=== PATIENT | male | born 1965 | race Caucasian/White ===

== ENCOUNTER → 2018-10-09 | Outpatient (CLI) | payer BC ==
[2018-10-09 16:13] LABS: BASOPHILS % (AUTO) 0 % (0-10); EOSINOPHILS % (AUTO) 0 % (0-10); HEMATOCRIT 52 % (40-54); HEMOGLOBIN 19.3 G/DL (13.3-17.7); LYMPHOCYTES # (AUTO) 0.9 X 10^3 (1.0-4.0); LYMPHOCYTES % (AUTO) 15 % (12-44); MEAN CORPUSCULAR HGB CONC 37 G/DL (32-36); MEAN CORPUSCULAR VOLUME 101 FL (80-99); MEAN PLATELET VOLUME 8.2 FL (7.4-10.4); MONOCYTES # (AUTO) 0.5 X 10^3 (0.0-1.0); MONOCYTES % (AUTO) 9 % (0-12); NEUTROPHILS # (AUTO) 4.2 X 10^3 (1.8-7.8); NEUTROPHILS % (AUTO) 75 % (42-75); PLATELET COUNT 156 10^3/uL (130-400); RED CELL DISTRIBUTION WIDTH 12.8 % (10.0-14.5); WHITE BLOOD COUNT 5.6 10^3/uL (4.3-11.0)
[2018-10-09 16:14] LABS: MEAN CORPUSCULAR HEMOGLOBIN 37 PG (25-34)
[2018-10-09 16:38] LABS: FIBRIN DEGRADATION PRODUCTS 0.72 UG/ML (0.00-0.49); PROTHROMBIN TIME PATIENT 13.3 SEC (12.2-14.7)
[2018-10-09 16:39] LABS: ALANINE AMINOTRANSFERASE 61 U/L (0-55); ALBUMIN 4.4 GM/DL (3.2-4.5); ALKALINE PHOSPHATASE 79 U/L (40-136); BILIRUBIN,TOTAL 1.5 MG/DL (0.1-1.0); BUN/CREATININE RATIO 7; CALCIUM 9.5 MG/DL (8.5-10.1); CARBON DIOXIDE 23 MMOL/L (21-32); CHLORIDE 100 MMOL/L (98-107); CREATININE SERUM 0.81 MG/DL (0.60-1.30); GFR ESTIMATED > 60; GLUCOSE 97 MG/DL (70-105); POTASSIUM 4.2 MMOL/L (3.6-5.0); SODIUM 134 MMOL/L (135-145); TOTAL PROTEIN 7.7 GM/DL (6.4-8.2)
== END ==
LOC: LAB 15:52
PROVIDERS: ATTEND Nurse Practitioner Family
DX: D51.3 Other dietary vitamin B12 deficiency anemia (principal); M79.662 Pain in left lower leg; I10 Essential (primary) hypertension; Z72.0 Tobacco use
CPT/HCPCS: 36415; 80053; 82607; 85025; 85379; 85610

== ENCOUNTER → 2018-10-10 | Outpatient (CLI) | payer BC ==
--- NOTE | 2018-10-10 13:31 | Diagnostic Imaging Report ---
PROCEDURE: US left lower extremity venous. TECHNIQUE: Multiple real-time grayscale images were obtained over the left lower extremity in various projections. Additional duplex Doppler and color Doppler images were also obtained. INDICATION: Localized swelling with mass and lump over the left lower extremity. FINDINGS: There is no evidence of left lower extremity DVT. Left lower extremity deep venous system shows normal compressibility with normal response to augmentation and Valsalva. No fluid collection or mass is seen. IMPRESSION: No evidence of left lower extremity DVT. Dictated by: Dictated on workstation # [id number]
== END ==
LOC: RAD 11:34
PROVIDERS: ATTEND Nurse Practitioner Family
DX: R22.42 Localized swelling, mass and lump, left lower limb (principal)

== ENCOUNTER 2019-02-04 01:46 | Inpatient (IN) | payer BC ==
[2019-02-04] VITALS (20 sets, daily range): BP systolic 89–155; BP diastolic 59–99
[~2019-02-04] VITALS: Ht 185 cm; Wt 88.6 kg
--- NOTE | 2019-02-04 01:56 | NUR ---
O2 DECREASED TO 4L VIA NC. O2 SAT 94%.
[2019-02-04] MEDS ORDERED: RT-ALBUTEROL/IPRATROPIUM 3 ML (DUONEB) VIAL ONE (01:58)
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
[2019-02-04 02:10] LABS: HEMOGLOBIN 16.1 G/DL (13.3-17.7); MEAN PLATELET VOLUME 9.4 FL (7.4-10.4); WHITE BLOOD COUNT 6.4 10^3/uL (4.3-11.0)
[2019-02-04] MEDS ORDERED: TETANUS,DIPTH,PERTUSS P/F (BOOSTRIX) 0.5 ML VIAL IM ONE (02:15)
--- NOTE | 2019-02-04 02:15 | NUR ---
INITIAL TRAUMA PAGED LEVEL 1 ACCORDING TO EMS REPORT. AFTER ASSESSMENT DR. BLAIR CHANGED TRAUMA TO LEVEL II.
[2019-02-04] MEDS ORDERED: LACTATED RINGERS 1,000 ML IV ONE ×2 (02:16→05:56)
[2019-02-04 02:25] LABS: BILIRUBIN,URINE NEGATIVE (NEGATIVE); CLARITY,URINE CLEAR; COLOR,URINE YELLOW; GLUCOSE, URINE (UA) NEGATIVE (NEGATIVE); KETONES,URINE NEGATIVE (NEGATIVE); LEUKOCYTE ESTERASE ,URINE NEGATIVE (NEGATIVE); NITRITE,URINE NEGATIVE (NEGATIVE); PH,URINE 6 (5-9); PROTEIN,URINE 3+ (NEGATIVE); UROBILINOGEN,URINE NORMAL (NORMAL)
[2019-02-04 02:31] LABS: ALANINE AMINOTRANSFERASE 114 U/L (0-55); ALKALINE PHOSPHATASE 79 U/L (40-136); BILIRUBIN,DIRECT 0.1 MG/DL (0.0-0.3); BILIRUBIN,INDIRECT 0.7 MG/DL; BILIRUBIN,TOTAL 0.8 MG/DL (0.1-1.0); BUN/CREATININE RATIO 6; CALCIUM 8.1 MG/DL (8.5-10.1); CARBON DIOXIDE 21 MMOL/L (21-32); CHLORIDE 99 MMOL/L (98-107); CREATININE SERUM 0.79 MG/DL (0.60-1.30); GFR ESTIMATED > 60; GLUCOSE 105 MG/DL (70-105); POTASSIUM 5.8 MMOL/L (3.6-5.0); SODIUM 132 MMOL/L (135-145); TOTAL PROTEIN 8.3 GM/DL (6.4-8.2)
[2019-02-04 02:49] LABS: BACTERIA,URINE FEW /HPF; SQUAMOUS EPITHELIAL CELL,UR 0-2 /HPF; WBC,URINE 0-2 /HPF
[2019-02-04] MEDS ORDERED: HOLD METFORMIN - RECEIVED CONTRAST 20 ML VIAL IV SCH (03:00)
[2019-02-04] MEDS ORDERED: IOHEXOL 350 MG/ML 100 ML (OMNIPAQUE 350) VIAL IV ONE (03:00)
[2019-02-04] MEDS ORDERED: NS 100 ML (IVPB) BAG IV ONE (03:00)
--- NOTE | 2019-02-04 03:30 | NUR ---
SUTURES PER DR. BLAIR: CHIN= 7CM LAC = 8 SUTURES OF 4-0 PROLENE. RIGHT SIDE UPPER LIP= 2 CM LAC = 3 SUTURES OF 5-0 PROLENE. RIGHT JACOME= 2.5 CM = 3 SUTURES OF 4-0 PROLENE. WOUND ADHESIVE TO 10CM SUPERFICIAL LAC TO NECK.
[2019-02-04] MEDS ORDERED: ceFAZolin INJECTION 1,000 MG in WATER (STERILE) FOR INJECTION 10 ML IV ONE (04:45)
--- NOTE | 2019-02-04 04:50 | NUR ---
PT FOUND STANDING ON SIDE OF BED WITH ANDERSON CATHETER ON THE FLOOR. THE ANDERSON CATHETER WAS FOUND TO BE INTACT WITH BALLOON STILL INFLATED. PT ASSISTED BACK TO BED AND DR. BLAIR NOTIFIED AND PRESENTED TO BEDSIDE. NEW ANDERSON CATHETER NOT INSERTED PER DR. BLAIR VERBAL ORDER.
[2019-02-04] MEDS ORDERED: WATER (STERILE) FOR INJECTION 0 ML ONE (05:13)
[2019-02-04] MEDS ORDERED: CEFEPIME 2 GM (MAXIPIME) VIAL ONE (05:13)
[2019-02-04] MEDS ORDERED: fentaNYL INJECTION 100 MCG/2 ML AMP IV PRN (07:00)
[2019-02-04] MEDS ORDERED: ONDANSETRON 4 MG/2 ML (SDV) Z0FRAN IV PRN (07:00)
[2019-02-04] MEDS: LACTATED RINGERS 1,000 ML IV SCH ×2 (07:00→16:27)
--- NOTE | 2019-02-04 07:15 | NUR ---
PT IS ALERT 1-2 AND UNABLE TO ANSWER HEALTH HISTORY QUESTIONS AT THIS TIME.
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
--- NOTE | 2019-02-04 10:00 | NUR ---
DR SANDERS AT BEDSIDE. SLING PLACED TO LEFT ARM FOR LT CLAVICLE FX. STATES HE WILL ORDER REPEAT KAYODE. ADVISED OF LARGE HEMATOMA TO LEFT HIP/THIGH. HE WILL LOOK AT CT AND POSSIBLY ORDER HIP XRAY.
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
[2019-02-04 12:09] LABS: BUN/CREATININE RATIO 7; CALCIUM 8.2 MG/DL (8.5-10.1); CARBON DIOXIDE 21 MMOL/L (21-32); CHLORIDE 100 MMOL/L (98-107); CREATININE SERUM 0.69 MG/DL (0.60-1.30); GFR ESTIMATED > 60; GLUCOSE 131 MG/DL (70-105); SODIUM 134 MMOL/L (135-145)
[2019-02-04] MEDS: NICOTINE 21 MG (NICODERM) PATCH TD SCH (13:21)
--- NOTE | 2019-02-04 14:03 | NUR ---
PER [facility], PT RX BEING FILLED IS: QUINAPRIL 20MG ONE TAB DAILY; ALPRAZOLAM 1MG 1.5 TAB DAILY PRN; KETOCONAZOLE 2% CREAM APPLY TO FACE DAILY PRN
--- NOTE | 2019-02-04 17:53 | NUR ---
PT HAD NOT VOIDED FOR APPROX 6 HRS. HE STATED HE HAD NO SENSATION TO GO. BLADDER SCAN REVEALED 508ML IN BLADDER. PT WAS ABLE TO VOID 250ML OF PINK TINGED URINE. URINATION IS PAINFUL AND SINCLAIR. ADVISED PATIENT TO CONTINUE TO TRY AND URINATE. HE STATES HE WILL TO AVOID CATHETER INSERTION.
--- NOTE | 2019-02-04 17:57 | NUR ---
PTS LEFT HIP/THIGH AREA CONTINUES TO BE SWOLLEN AND BRUISE IS WORSENING THE DAY GOES ON. PT DENIES ANY PAIN AND IS MOVING LEG FREELY. DISTAL PULSE IS INTACT AND STRONG. SWELLING HAS EXTENDED SOME PAST LINE DRAWN FROM THIS MORNING. PROVIDER IS AWARE OF SWELLING. WILL CONTINUE TO MONITOR THIS.
[2019-02-05] VITALS (14 sets, daily range): BP systolic 127–153; BP diastolic 73–97
[2019-02-05] MEDS: fentaNYL INJECTION 100 MCG/2 ML AMP IV PRN ×4 (00:41→10:33)
--- NOTE | 2019-02-05 02:15 | NUR ---
Ck casillas in ED - 02/05/19 at 0911 by MARICRUZ INITIAL TRAUMA PAGED LEVEL 1 ACCORDING TO EMS REPORT. AFTER ASSESSMENT DR. BLAIR CHANGED TRAUMA TO LEVEL II.
[2019-02-05] MEDS: LACTATED RINGERS 1,000 ML IV SCH (02:43)
[2019-02-05 03:55] LABS: BASOPHILS % (AUTO) 0 % (0-10); EOSINOPHILS % (AUTO) 0 % (0-10); HEMATOCRIT 34 % (40-54); LYMPHOCYTES # (AUTO) 0.8 X 10^3 (1.0-4.0); LYMPHOCYTES % (AUTO) 13 % (12-44); MEAN CORPUSCULAR HEMOGLOBIN 38 PG (25-34); MEAN CORPUSCULAR HGB CONC 35 G/DL (32-36); MEAN CORPUSCULAR VOLUME 106 FL (80-99); MEAN PLATELET VOLUME 8.5 FL (7.4-10.4); MONOCYTES # (AUTO) 0.7 X 10^3 (0.0-1.0); MONOCYTES % (AUTO) 10 % (0-12); NEUTROPHILS # (AUTO) 4.9 X 10^3 (1.8-7.8); NEUTROPHILS % (AUTO) 77 % (42-75); PLATELET COUNT 154 10^3/uL (130-400); WHITE BLOOD COUNT 6.4 10^3/uL (4.3-11.0)
[2019-02-05 04:15] LABS: BUN/CREATININE RATIO 10; CALCIUM 8.1 MG/DL (8.5-10.1); CARBON DIOXIDE 23 MMOL/L (21-32); CHLORIDE 101 MMOL/L (98-107); CREATININE SERUM 0.61 MG/DL (0.60-1.30); GFR ESTIMATED > 60; GLUCOSE 122 MG/DL (70-105); MAGNESIUM 1.7 MG/DL (1.6-2.4); PHOSPHORUS 3.2 MG/DL (2.3-4.7); POTASSIUM 3.5 MMOL/L (3.6-5.0); SODIUM 134 MMOL/L (135-145)
[2019-02-05] MEDS: MAGNESIUM 1 GM/100 ML IVPB 100 ML IV SCH ×2 (05:55→07:13)
[2019-02-05] MEDS ORDERED: MAGNESIUM 1 GM/100 ML IVPB 100 ML IV SCH (06:00)
[2019-02-05] MEDS ORDERED: KCL 20 MEQ TAB (K-DUR) PO SCH (06:00)
[2019-02-05] MEDS ORDERED: POTASSIUM CL 10MEQ/50ML IVPB 50 ML IV SCH (06:00)
--- NOTE | 2019-02-05 07:40 | NUR ---
ASSUMING CARE OF THIS PATIENT. REPORT RECIEVED AND ASSESSMENT COMPLETED. PT C/O PAIN 12/16 FOR A DULL HEADACHE. EDUCATED ON NARCOTIC PAIN MEDICATION AND WHEN IT COULD BE ADMINISTERED. PLAN IS TO ADMINISTER AT 0755 PER ORDER AND THEN TRY TO GET UP TO CHAIR. LEFT HIP/THIGH CONTINUES TO BE SWOLLEN AND BRUISE WORSENED. HE DENIES PAIN HERE. ATTEMPTED TO WEAN DOWN OXYGEN TO 1 LPM WITH SATS DROPPING TO 90% AND STAYED. IS ORDERED AND RT NOTIFIED.
[2019-02-05] MEDS: NICOTINE 21 MG (NICODERM) PATCH TD SCH (08:19)
[2019-02-05] MEDS ORDERED: ALPR1TAB2 PO (08:47)
[2019-02-05] MEDS ORDERED: QUIN20TA16 PO (08:48)
[2019-02-05] MEDS ORDERED: KETO15CR2 TOP (08:48)
[2019-02-05] MEDS ORDERED: PATCH REMOVAL TP SCH (09:00)
[2019-02-05] MEDS: POTASSIUM CL 10MEQ/50ML IVPB 50 ML IV SCH ×2 (09:07→10:11)
--- NOTE | 2019-02-05 09:20 | NUR ---
PT ASSISTED TO RECLINER X 1. WAS ABLE TO RISE FROM BED IN ONE TRY. PT WAS VERY SHAKY BUT ONLY NEEDED SBA FOR TRANSFER. HE STATES IT FEELS GOOD TO SIT IN THE CHAIR. PT SHAKE STOPPED AFTER SITTING. OXYGEN SATS 95-96%. PT ENCOURAGED TO USE IS AND HE DOES WITH GOOD EFFORT.
--- NOTE | 2019-02-05 09:48 | NUR ---
PT SITTING UP IN RECLINER. SATS 98-100%. OXYGEN TITRATED AND IS NOW OFF. SATS REMAIN 99%. WILL MONITOR.
[2019-02-05] MEDS ORDERED: 1/2 NS IV SOLUTION 1,000 ML IV PRN (11:26)
[2019-02-05] MEDS ORDERED: LORazepam INJ 2 MG/ML (ATIVAN) VIAL IM/IV PRN (11:30)
[2019-02-05] MEDS ORDERED: SENNA W/DOCUSATE (SENOKOT S) TABLET PO PRN (11:30)
[2019-02-05] MEDS ORDERED: ANTACID SUSP 30 ML UDC (MYLANTA) PO PRN (11:30)
[2019-02-05] MEDS ORDERED: D5 1/2 NS 1000 ML IV SOLUTION 1,000 ML IV PRN (11:30)
[2019-02-05] MEDS ORDERED: LORazepam INJ 2 MG/ML (ATIVAN) VIAL IV PRN (11:30)
[2019-02-05] MEDS: LORazepam 1 MG (ATIVAN) TAB PO PRN ×2 (11:48→13:31)
--- NOTE | 2019-02-05 13:10 | NUR ---
PT MOOD LABILE. HE HAS TAKEN ALL BEDSIDE MONITORING OFF AND WILL NOT ALLOW ME TO PUT THEM BACK ON. WANTS ME TO TAKE OUT HIS IV'S. STATES HE IS READY TO GO HOME. WAS ABLE TO CALM PATIENT WITH THERAPEUTIC COMMUNICATION AND HE WILL ALLOW ME TO LEAVE IV'S IN. PT DID GET UP AND WALK AROUND ROOM ON HIS OWN. HE IS NOW SITTING IN HIS CHAIR WATCHING TV.
--- NOTE | 2019-02-05 13:43 | NUR ---
FOUND PATIENT WALKING UP SMITH AFTER MOTHER HAD LEFT THE ROOM. STATED HE WAS READY TO GO HOME. PT DID WILLINGLY WALK BACK TO HIS ROOM. ALDAIR COMPLETED, ADMINISTERED 2MG ATIVAN PER SCALE. PT DID ALLOW ME TO MEASURE BLOOD PRESSURE BUT NOT MEAT PASSER BSM. DID TELL PATIENT THAT I COULD NOT HOLD HIM HERE BUT IF HE LEFT IT WOULD BE AMA. PT STATES HE WILL WAIT FOR THE DOCTOR.
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
--- NOTE | 2019-02-05 14:38 | Discharge Inst-Surgical ---
Discharge Inst-Surgical Depart Medication/Instructions New, Converted or Re-Newed RX: Other (no rx needed, pt should use Ibuprofen or tylenol at home for pain) Patient Instructions Follow up Appt: Make appointment for 1 week. [phone] Instructions: No lifting greater than 20 pounds. Do not use left arm, leave in sling 29/11 No strenuous activity. May shower in 24 hours, no tub bath or soaking. Use incentive spirometer at home as directed. No Smoking Skin/Wound Care: You need to leave the Dermabond on incision it will fall off on it's own. Symptoms to Report: Appetite Changes, Extremity Discoloration, Numbness/Tingling, Swelling Increased, Bleeding Excessive, Eyesight Changes, Pain Increased, Urine Color Change, Constipation(Persistent), Fever over 101 degree F, Pain/Pressure in chest, Urinating Difficulty, Cough Up/Vomit Blood, Heart Beat Irreg/Pounding, Pain/Pressure in jaw, Cramps in feet or legs, Lightheadedness, Pain/Pressure in shoulder, Diarrhea(Persistent), Memory Changes Suddenly, Questions/Concerns, Weight gain consecutive days, Dizziness/Fainting, Nausea/Vomiting, Shortness of Breath, Weight gain over 2 pounds If questions or concerns contact your physician Or seek help at emergency department. Activity Activity as Tolerated: Yes Driving Instructions: No Driving/Refer to Dr. Cardenas Discharge Diet: No Restrictions Diet After 24 Hours: Clear Liquid if Nauseous Symptoms to Report to Physicia: Shortness of Breath If Any Problems/Questions/Issu: Contact Your Physician, Go to Emergency Room Skin/Wound Care Infection Signs and Symptoms: Increased Redness, Foul Odor of Wound, Increased Drainage, Skin Itchy or Has a Rash, Increased Swelling, Temperature Above 101 F Bathing Instructions: Shower Stitches/Mandy/Dermabond Dis: Dermabond THIEN SANDERS DO Feb 05, 2019 14:37
--- NOTE | 2019-02-05 15:03 | NUR ---
PT DISCHARGED TO PRIVATE VEHICLE VIA W/C. MOTHER TO HELP CARE FOR PATIENT. ALL DISCHARGE INFORMATION GIVEN. TOLD PATIENT IMPORTANCE TO NOT USE LEFT ARM AND KEEP IN SLING. HE VOICED UNDERSTANDING. ALL PERSONAL BELONGINGS TAKEN WITH PATIENT. HE REFUSED VITALS AT D/C.
== END 2019-02-05 14:34 | disposition home or self-care (01) | DRG 987 ==
LOC: EDUNIT# 01:54 → ER 01:56 → ICU 04:30 → UNDOADMOB 04:30 → ICU 05:33 → UNDODISOB 02-05 15:03
PROVIDERS: ADMIT Surgery; ATTEND Surgery
PROC: 0JQ10ZZ Repair Face Subcutaneous Tissue and Fascia, Open Approach (ICD-10-PCS; principal; 2019-02-04)
PROC: 0HQKXZZ Repair Right Lower Leg Skin, External Approach (ICD-10-PCS; 2019-02-04)
DX: S22.43XA Multiple fractures of ribs, bilateral, initial encounter for closed fracture (principal); S12.8XXA Fracture of other parts of neck, initial encounter; S02.19XA Other fracture of base of skull, initial encounter for closed fracture; S42.022A Displaced fracture of shaft of left clavicle, initial encounter for closed fracture; S01.511A Laceration without foreign body of lip, initial encounter; S01.81XA Laceration without foreign body of other part of head, initial encounter; S81.811A Laceration without foreign body, right lower leg, initial encounter; F10.921 Alcohol use, unspecified with intoxication delirium; S37.30XA Unspecified injury of urethra, initial encounter; S00.03XA Contusion of scalp, initial encounter; S80.211A Abrasion, right knee, initial encounter; S80.212A Abrasion, left knee, initial encounter; S70.212A Abrasion, left hip, initial encounter; S60.811A Abrasion of right wrist, initial encounter; R31.9 Hematuria, unspecified; F41.9 Anxiety disorder, unspecified; F17.210 Nicotine dependence, cigarettes, uncomplicated; E87.6 Hypokalemia; Z23 Encounter for immunization; V57 Occupant of pick-up truck or van injured in collision with fixed or stationary object
CPT/HCPCS: 36415; 51702; 70450; 70486; 71045; 71260; 72125; 74177; 80048; 80076; 80320; 81000; 83735; 84100; 85025; 85027; 86850; 86900; 86901; 87081; 90471; 90715; 93005; 93041; 94640; 94664; 96361; 96374

== ENCOUNTER 2019-02-17 11:21 | Inpatient (IN) | payer BC ==
[~2019-02-17] VITALS: Ht 185.5 cm; Wt 85.9 kg
[~2019-02-17 11:21] MED LIST: ALPR1TAB2 PO; KETO15CR2 TOP; QUIN20TA16 PO
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
[2019-02-17 12:13] LABS: BASOPHILS % (AUTO) 0 % (0-10); EOSINOPHILS % (AUTO) 0 % (0-10); HEMATOCRIT 37 % (40-54); HEMOGLOBIN 14.5 G/DL (13.3-17.7); LYMPHOCYTES # (AUTO) 0.7 X 10^3 (1.0-4.0); LYMPHOCYTES % (AUTO) 5 % (12-44); MEAN CORPUSCULAR HEMOGLOBIN 37 PG (25-34); MEAN CORPUSCULAR HGB CONC 39 G/DL (32-36); MEAN CORPUSCULAR VOLUME 95 FL (80-99); MEAN PLATELET VOLUME 7.7 FL (7.4-10.4); MONOCYTES # (AUTO) 0.8 X 10^3 (0.0-1.0); MONOCYTES % (AUTO) 6 % (0-12); NEUTROPHILS # (AUTO) 12.1 X 10^3 (1.8-7.8); NEUTROPHILS % (AUTO) 90 % (42-75); PLATELET COUNT 495 10^3/uL (130-400); RED CELL DISTRIBUTION WIDTH 12.1 % (10.0-14.5); WHITE BLOOD COUNT 13.5 10^3/uL (4.3-11.0)
[2019-02-17 12:22] LABS: INR 0.9 (0.8-1.4); PROTHROMBIN TIME PATIENT 12.6 SEC (12.2-14.7)
--- NOTE | 2019-02-17 12:26 | NUR ---
TRAUN IN TALKING TO PT
[2019-02-17 12:30] LABS: ALANINE AMINOTRANSFERASE 28 U/L (0-55); ALBUMIN 4.1 GM/DL (3.2-4.5); ALKALINE PHOSPHATASE 106 U/L (40-136); BILIRUBIN,TOTAL 2.7 MG/DL (0.1-1.0); BUN/CREATININE RATIO 7; CALCIUM 9.2 MG/DL (8.5-10.1); CARBON DIOXIDE 17 MMOL/L (21-32); CHLORIDE 79 MMOL/L (98-107); GFR ESTIMATED > 60; GLUCOSE 96 MG/DL (70-105); POTASSIUM 4.4 MMOL/L (3.6-5.0); TOTAL PROTEIN 7.3 GM/DL (6.4-8.2)
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
[2019-02-17 12:36] LABS: SODIUM 110 MMOL/L (135-145)
[2019-02-17] MEDS ORDERED: LIDOCAINE 1% INJ 20 ML 20 ML VIAL ONE (12:40)
--- NOTE | 2019-02-17 12:42 | NUR ---
DR HOLGUIN HERE FOR CHEST TUBE PLACEMENT
[2019-02-17 12:48] LABS: BAND NEUTROPHILS 0 %; BASOPHILS % (MANUAL) 0 %; EOSINOPHILS % (MANUAL) 0 %; LYMPHOCYTES % (MANUAL) 5 %; MONOCYTES % (MANUAL) 10 %; NEUTROPHILS % (MANUAL) 85 %; RBC MORPH NORMAL
--- NOTE | 2019-02-17 13:10 | NUR ---
RESTING IN BED. DENIES NEEDS. WARM BLANKET GIVEN.
--- NOTE | 2019-02-17 13:37 | Diagnostic Imaging Report ---
Clinical indication: Patient with left pneumothorax. Post chest tube placement. Exam: Portable chest x-ray upright view. Comparison: Portable chest x-ray dated 02/17/2019. Findings: Interval placement of chest tube overlying the mid to upper left hemithorax region. There is continued moderate to large sized left pneumothorax which is decreasing in size. There is slight improved aeration of previously seen collapsed left lung. There is consolidation and atelectasis of the left lung base region. The right lung is clear. Pulmonary vasculature and cardiac silhouette is within normal limits. Impression: 1: Interval placement of left chest tube with interval slight decreased size of the now moderate to large left pneumothorax. 2: There is slight reexpansion of the collapsed left lung. Dictated by: Dictated on workstation # [id number]
--- NOTE | 2019-02-17 13:51 | NUR ---
TARUN IN TALKING TO PT AT THIS TIME.
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
[2019-02-17 15:00] VITALS: BP 151/80
[2019-02-17 15:10] VITALS: BP 121/74
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
[2019-02-17] MEDS ORDERED: CATHETER FLUSH 10 ML SYR IV PRN (15:15)
[2019-02-17] MEDS ORDERED: HYDROcodone/APAP 5 MG/325 MG (LORTAB) TAB PO PRN (15:15)
[2019-02-17] MEDS ORDERED: ONDANSETRON 4 MG/2 ML (SDV) Z0FRAN IV PRN (15:15)
[2019-02-17] MEDS ORDERED: RT-ALBUTEROL/IPRATROPIUM 3 ML (DUONEB) VIAL INH PRN (15:45)
[2019-02-17] MEDS ORDERED: FLU QUADRIvalent (5+ YOA) 2019-2020 (AFLURIA) 0.5 ML IM ONE (16:15)
[2019-02-17] MEDS: NS IV 1000 ML 1,000 ML IV SCH ×2 (16:43→23:53)
[2019-02-17 18:23] LABS: BUN/CREATININE RATIO 8; CALCIUM 8.7 MG/DL (8.5-10.1); CARBON DIOXIDE 17 MMOL/L (21-32); CHLORIDE 79 MMOL/L (98-107); CREATININE SERUM 0.61 MG/DL (0.60-1.30); GFR ESTIMATED > 60; GLUCOSE 81 MG/DL (70-105); POTASSIUM 4.3 MMOL/L (3.6-5.0)
[2019-02-17 18:27] LABS: SODIUM 110 MMOL/L (135-145)
[2019-02-17 19:00] VITALS: BP 145/67
[2019-02-17 20:00] VITALS: BP 163/70
--- NOTE | 2019-02-17 20:34 | NUR ---
patient is on RA and no distress noted and patient stated he was doing good and did not need anything at this time
[2019-02-18] VITALS: BP 136/86
[2019-02-18 03:08] LABS: BASOPHILS % (AUTO) 0 % (0-10); EOSINOPHILS % (AUTO) 0 % (0-10); HEMATOCRIT 35 % (40-54); HEMOGLOBIN 13.6 G/DL (13.3-17.7); LYMPHOCYTES % (AUTO) 11 % (12-44); MEAN CORPUSCULAR HEMOGLOBIN 38 PG (25-34); MEAN CORPUSCULAR HGB CONC 39 G/DL (32-36); MEAN CORPUSCULAR VOLUME 98 FL (80-99); MONOCYTES # (AUTO) 0.9 X 10^3 (0.0-1.0); MONOCYTES % (AUTO) 10 % (0-12); NEUTROPHILS # (AUTO) 6.6 X 10^3 (1.8-7.8); NEUTROPHILS % (AUTO) 78 % (42-75); PLATELET COUNT 396 10^3/uL (130-400); WHITE BLOOD COUNT 8.5 10^3/uL (4.3-11.0)
[2019-02-18 03:31] LABS: ALANINE AMINOTRANSFERASE 29 U/L (0-55); ALBUMIN 3.9 GM/DL (3.2-4.5); ALKALINE PHOSPHATASE 115 U/L (40-136); BILIRUBIN,TOTAL 3.2 MG/DL (0.1-1.0); BUN/CREATININE RATIO 6; CALCIUM 8.5 MG/DL (8.5-10.1); CARBON DIOXIDE 19 MMOL/L (21-32); CHLORIDE 88 MMOL/L (98-107); CREATININE SERUM 0.63 MG/DL (0.60-1.30); GFR ESTIMATED > 60; GLUCOSE 79 MG/DL (70-105); MAGNESIUM 1.8 MG/DL (1.6-2.4); PHOSPHORUS 3.4 MG/DL (2.3-4.7); TOTAL PROTEIN 6.8 GM/DL (6.4-8.2)
[2019-02-18 03:42] LABS: SODIUM 118 MMOL/L (135-145)
[2019-02-18 04:00] VITALS: BP 123/64
[2019-02-18] MEDS ORDERED: KCL 20 MEQ TAB (K-DUR) PO SCH (06:00)
[2019-02-18] MEDS ORDERED: POTASSIUM CL 10MEQ/50ML IVPB 50 ML IV SCH (06:00)
[2019-02-18] MEDS ORDERED: MAGNESIUM 1 GM/100 ML IVPB 100 ML IV SCH (06:00)
[2019-02-18 07:00] VITALS: BP 127/71
[2019-02-18] MEDS: NS IV 1000 ML 1,000 ML IV SCH (07:22)
--- NOTE | 2019-02-18 07:36 | Diagnostic Imaging Report ---
INDICATION: Traumatic pneumothorax. TIME OF EXAM: 5:47 AM Correlation is made with prior chest one day earlier. FINDINGS: Small caliber chest tube on the left is noted. There has been significant reexpansion of the left lung with only a very minimal residual left apical pneumothorax. Right lung is clear. There is no effusion. IMPRESSION: Near complete reexpansion of the left lung with only a very minimal residual left apical pneumothorax. Dictated by: Dictated on workstation # [id number]
[2019-02-18 08:00] VITALS: BP 128/85
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
[2019-02-18 09:00] VITALS: BP 141/75
[2019-02-18 10:00] VITALS: BP 96/78
--- NOTE | 2019-02-18 10:09 | NUR ---
Pt's mother currently at bedside at this time. Pt is currently insisting on leaving to be able to attend work tomorrow. Education provided to mother and pt at bedside by this RN. This RN strongly encouraged pt to stay and seek medical treatment for the following: Pneumothorax, hyponatremia and broken clavicle. Mother also informed at bedside of pt's potential for and seizures due to decreased sodium levels and pneumothorax. Pt told mother at bedside "shut up I am not stupid" When both this RN and mother attempted to convince pt to stay for medical treatment. Pt agrees to return to Dr. Suero's office to check thoravent in left chest tomorrow. Information provided to pt regarding Dr. Suero office hours and phone number. Mother also given information at this time. Education provided on signs and symptoms of worsening conditions. Mother agrees to help pt seek medical attention if pt declines. Dr. Mendez and Dr. Suero notified of pt's behavior and requests during this time. Will continue to encourage pt to stay at this time.
--- NOTE | 2019-02-18 10:20 | Discharge Summary ---
Diagnosis/Chief Complaint Date of Admission Feb 17, 2019 at 1:10 pm Date of Discharge Admission Diagnosis hyponatremia- likely multifactorial from alcohol and siadh pneumothorax htn alcohol dependence clavicle fracture rib fracture metabolic acidosis- likely alcoholic ketosis Plan: thoravent in ER Surgery consulted, appreciates recs IVF with repeat BMP this afternoon fluid restriction appears to be acute as Na 130s last week IS CIWA protocol Primary Care Constantino Romero MD Discharge Diagnosis (1) Rib fracture (2) Clavicle fracture (3) Alcohol dependence (4) Metabolic acidosis (5) Pneumothorax Status: Acute (6) Hyponatremia Status: Acute Discharge Summary Procedures/Consulations Dr Suero- General Surgery Discharge Physical Exam Allergies: Coded Allergies: No Known Drug Allergies (Unverified , 02/04/19) Vitals & I&Os Vital Signs Date Time Temp Pulse Resp B/P (MAP) Pulse Ox O2 Delivery O2 Flow Rate FiO2 02/18/19 09:00 97 Room Air 02/18/19 08:00 74 16 128/85 (99) 02/18/19 04:00 36.9 02/17/19 15:10 21 General Appearance: No Apparent Distress, WD/WN Respiratory: Normal Breath Sounds, No Respiratory Distress, Other (thoravent in place) Hospital Course Pt admitted due to severe hyponatremia and 90% pneumothorax requiring needle decompression. He was observed overnight and given IVF to help improve his sodium and it went up to 118 which remained in a critical level. He also had Thoravent placed in the ER which was managed by Dr Suero. On day 2 of admission he elected to leave against medical advice. I discussed my medical recommendation of continued admission for correction of electrolytes but he declined. I discussed the risks off discharging before medical optimization including seizure, disability, and and he expressed understanding. Labs (last 24 hrs) Laboratory Tests 02/17/19 12:09: White Blood Count 13.5H, Red Blood Count 3.90L, Hemoglobin 14.5, Hematocrit 37L, Mean Corpuscular Volume 95, Mean Corpuscular Hemoglobin 37H, Mean Corpuscular Hemoglobin Concent 39H, Red Cell Distribution Width 12.1, Platelet Count 495H, Mean Platelet Volume 7.7, Neutrophils (%) (Auto) 90H, Lymphocytes (%) (Auto) 5L, Monocytes (%) (Auto) 6, Eosinophils (%) (Auto) 0, Basophils (%) (Auto) 0, Neutrophils # (Auto) 12.1H, Lymphocytes # (Auto) 0.7L, Monocytes # (Auto) 0.8, Eosinophils # (Auto) 0.0, Basophils # (Auto) 0.0, Neutrophils % (Manual) 85, Lymphocytes % (Manual) 5, Monocytes % (Manual) 10, Eosinophils % (Manual) 0, Basophils % (Manual) 0, Band Neutrophils 0, Blood Morphology Comment NORMAL, Prothrombin Time 12.6, INR Comment 0.9, Sodium Level 110*L, Potassium Level 4.4, Chloride Level 79L, Carbon Dioxide Level 17L, Anion Gap 14, Blood Urea Nitrogen 4L, Creatinine 0.60, Estimat Glomerular Filtration Rate > 60, BUN/Creatinine Ratio 7, Glucose Level 96, Calcium Level 9.2, Corrected Calcium 9.1, Total Bilirubin 2.7H, Aspartate Amino Transf (AST/SGOT) 40H, Alanine Aminotransferase (ALT/SGPT) 28, Alkaline Phosphatase 106, Total Protein 7.3, Albumin 4.1, Serum Alcohol 11H 02/17/19 18:00: Sodium Level 110*L, Potassium Level 4.3, Chloride Level 79L, Carbon Dioxide Level 17L, Anion Gap 14, Blood Urea Nitrogen 5L, Creatinine 0.61, Estimat Glomerular Filtration Rate > 60, BUN/Creatinine Ratio 8, Glucose Level 81, Calcium Level 8.7 02/18/19 02:40: White Blood Count 8.5, Red Blood Count 3.62L, Hemoglobin 13.6, Hematocrit 35L, Mean Corpuscular Volume 98, Mean Corpuscular Hemoglobin 38H, Mean Corpuscular Hemoglobin Concent 39H, Red Cell Distribution Width 12.0, Platelet Count 396, Mean Platelet Volume 8.0, Neutrophils (%) (Auto) 78H, Lymphocytes (%) (Auto) 11L , Monocytes (%) (Auto) 10, Eosinophils (%) (Auto) 0, Basophils (%) (Auto) 0, Neutrophils # (Auto) 6.6, Lymphocytes # (Auto) 1.0, Monocytes # (Auto) 0.9, Eosinophils # (Auto) 0.0, Basophils # (Auto) 0.0, Sodium Level 118*L, Potassium Level 4.0, Chloride Level 88L, Carbon Dioxide Level 19L, Anion Gap 11, Blood Urea Nitrogen 4L, Creatinine 0.63, Estimat Glomerular Filtration Rate > 60, BUN/Creatinine Ratio 6, Glucose Level 79, Calcium Level 8.5, Corrected Calcium 8.6, Total Bilirubin 3.2H, Aspartate Amino Transf (AST/SGOT) 36H, Alanine Aminotransferase (ALT/SGPT) 29, Alkaline Phosphatase 115, Total Protein 6.8, Albumin 3.9, Phosphorus Level 3.4, Magnesium Level 1.8 02/18/19 02:46: Patient resulted labs reviewed. Pending Labs Laboratory Tests 02/18/19 02:40: White Blood Count 8.5, Red Blood Count 3.62, Hemoglobin 13.6, Hematocrit 35, Mean Corpuscular Volume 98, Mean Corpuscular Hemoglobin 38, Mean Corpuscular Hemoglobin Concent 39, Red Cell Distribution Width 12.0, Platelet Count 396, Mean Platelet Volume 8.0, Neutrophils (%) (Auto) 78, Lymphocytes (%) (Auto) 11, Monocytes (%) (Auto) 10, Eosinophils (%) (Auto) 0, Basophils (%) (Auto) 0, Neutrophils # (Auto) 6.6, Lymphocytes # (Auto) 1.0, Monocytes # (Auto) 0.9, Eosinophils # (Auto) 0.0, Basophils # (Auto) 0.0, Sodium Level 118, Potassium Level 4.0, Chloride Level 88, Carbon Dioxide Level 19, Anion Gap 11, Blood Urea Nitrogen 4, Creatinine 0.63, Estimat Glomerular Filtration Rate > 60, BUN/Creatinine Ratio 6, Glucose Level 79, Calcium Level 8.5, Corrected Calcium 8.6, Phosphorus Level 3.4, Magnesium Level 1.8, Total Bilirubin 3.2, Aspartate Amino Transf (AST/SGOT) 36, Alanine Aminotransferase (ALT/SGPT) 29, Alkaline Phosphatase 115, Total Protein 6.8, Albumin 3.9 02/18/19 02:46: HIV (1&2) Ag and Ab Screen Referral [Pending] Discussion & Recommendations Discharge Planning: >30 minutes discharge planning Discharge Home Medications: Active Scripts Active Reported Ketoconazole 15 Gm Cream..g. TOP DAILY PRN Quinapril HCl 20 Mg Tablet 20 Mg PO DAILY Xanax (Alprazolam) 1 Mg Tablet 1.5 Mg PO DAILY PRN TAKES 1 & 1/2 (1MG) TABLETS Instructions to patient/family Please see electronic discharge instructions given to patient. Clinical Quality Measures DVT/VTE Risk/Contraindication: Risk Factor Score Per Nursin RFS Level Per Nursing on Admit: 3=High Problem Qualifiers (1) Pneumothorax: Pneumothorax type: traumatic Encounter type: initial encounter Qualified Codes: S27.0XXA - Traumatic pneumothorax, initial encounter PAULIE GERMAIN MD Feb 18, 2019 10:20 am
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
--- NOTE | 2019-02-18 11:00 | NUR ---
Pt attempting to leave at this time. RN offered medication to help calm pt during this time of distress. Pt strongly refused requesting IV removal at this time. AMA papers offered to pt at this time. Mother remains at bedside with no comment. IV to right AC space removed per pt requests. AMA papers signed. Pt dressed self. RN attempted to encourage pt to stay, pt refused staff at this time. Pt walked of own free-will to elevators at this time.
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
== END 2019-02-18 11:00 | disposition left against medical advice (07) | DRG 200 ==
LOC: EDUNIT# 11:21 → ER 11:22 → ICU 13:10
PROVIDERS: ADMIT Family Medicine; ATTEND Family Medicine
PROC: 0W9B30Z Drainage of Left Pleural Cavity with Drainage Device, Percutaneous Approach (ICD-10-PCS; principal; 2019-02-18)
DX: S27.0XXA Traumatic pneumothorax, initial encounter (principal); E22.2 Syndrome of inappropriate secretion of antidiuretic hormone; E87.2 Acidosis; F17.210 Nicotine dependence, cigarettes, uncomplicated; F41.9 Anxiety disorder, unspecified; I10 Essential (primary) hypertension; F10.20 Alcohol dependence, uncomplicated; E88.89 Other specified metabolic disorders; Z53.29 Procedure and treatment not carried out because of patient's decision for other reasons; W17.89XA Other fall from one level to another, initial encounter; Y92.098 Other place in other non-institutional residence as the place of occurrence of the external cause
CPT/HCPCS: 32551; 36415; 71045; 71046; 80048; 80053; 80320; 83735; 84100; 85007; 85025; 85027; 85610; 86703; 87081

== ENCOUNTER → 2019-02-19 | Outpatient (CLI) | payer BC ==
--- NOTE | 2019-02-19 17:24 | Diagnostic Imaging Report ---
INDICATION: Pneumothorax. FINDINGS: There is a small left apical pneumothorax. Heart size is normal. There is no pleural effusion. Mediastinum is unremarkable. IMPRESSION: Small left apical pneumothorax. The previously seen left thoracostomy tube has been removed. Dictated by: Dictated on workstation # [id number]
== END ==
LOC: RAD 16:58
PROVIDERS: ATTEND Surgery
DX: J93.83 Other pneumothorax (principal); Z98.890 Other specified postprocedural states
CPT/HCPCS: 71045

== ENCOUNTER → 2019-02-20 | Outpatient (CLI) | payer BC ==
--- NOTE | 2019-02-20 08:45 | Diagnostic Imaging Report ---
INDICATION: PNUEMOTHORAX AND AIR LEAK COMPARISON: 02/19/2019 FINDINGS: Frontal and lateral views of the chest demonstrate normal heart size and pulmonary vascularity. Trace left apical pneumothorax is noted and has decreased in size compared to prior exam. Otherwise, lungs are stable. No new focal consolidation or effusion is seen on either side. The visualized osseous structures show no acute abnormalities. IMPRESSION: 1. Interval decrease in trace left apical pneumothorax. Dictated by: Dictated on workstation # [id number]
== END ==
LOC: RAD 08:19
PROVIDERS: ATTEND Surgery
DX: J93.9 Pneumothorax, unspecified (principal)
CPT/HCPCS: 71046

== ENCOUNTER → 2019-02-23 | Outpatient (CLI) | payer BC ==
--- NOTE | 2019-02-23 10:27 | Diagnostic Imaging Report ---
INDICATION: Left clavicle fracture, follow-up. Time of exam 9:51 AM Mid 3rd left clavicle fracture is noted. There continues to be separation of the fracture fragments. The more proximal fragment is located cephalad to the distal fragment by 2.8 cm. There is slight overriding as well. Acromioclavicular alignment is normal. IMPRESSION: Mid 3rd, displaced left clavicle fracture. Dictated by: Dictated on workstation # [id number]
== END ==
LOC: ORTHO 09:41
PROVIDERS: ATTEND Orthopaedic Surgery
DX: S42.022D Displaced fracture of shaft of left clavicle, subsequent encounter for fracture with routine healing (principal)
CPT/HCPCS: 73000; 99203

== ENCOUNTER → 2019-03-16 | Outpatient (CLI) | payer BC ==
--- NOTE | 2019-03-16 11:34 | Diagnostic Imaging Report ---
EXAMINATION: Left clavicle at 1030 hours. INDICATION: Fracture. Two views were obtained. As noted on the prior exam of 02/23/2019 there is a widely displaced overriding fracture of the midshaft of the left clavicle. There is minimal healing callus formation present. No other fracture or acute abnormality is identified. IMPRESSION: There is a widely displaced incompletely healed fracture of the midshaft of the left clavicle. There has only been a small amount of healing callus formation develop since the prior study. Dictated by: Dictated on workstation # [id number]
== END ==
LOC: ORTHO 10:09
PROVIDERS: ATTEND Orthopaedic Surgery
DX: S42.022D Displaced fracture of shaft of left clavicle, subsequent encounter for fracture with routine healing (principal)
CPT/HCPCS: 73000; 99213

== ENCOUNTER → 2019-03-20 | Outpatient (CLI) | payer BC ==
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
== END ==
LOC: RAD 17:10
PROVIDERS: ATTEND Nurse Practitioner Family
DX: M47.812 Spondylosis without myelopathy or radiculopathy, cervical region (principal); M48.02 Spinal stenosis, cervical region; M25.78 Osteophyte, vertebrae; D51.3 Other dietary vitamin B12 deficiency anemia
CPT/HCPCS: 72141

== ENCOUNTER → 2019-05-03 | Outpatient (CLI) | payer BC ==
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
== END ==
LOC: RAD 12:15
PROVIDERS: ATTEND Otolaryngology Otolaryngology/Facial Plastic Surgery
DX: S42.002A Fracture of unspecified part of left clavicle, initial encounter for closed fracture (principal); S12.8XXA Fracture of other parts of neck, initial encounter
CPT/HCPCS: 70490